=== PATIENT | male | born 1985 | race Caucasian/White ===

== ENCOUNTER 2017-01-20 11:20 | Emergency (ER) | payer SELFPAY ==
[~2017-01-20] VITALS: Ht 175.3 cm; Wt 55.0 kg
[2017-01-20 11:22] VITALS: BP 128/66; PULSE 64; RESP 20; TEMP 97.9; O2SAT 99
--- NOTE | 2017-01-20 12:25 | PD ---
HPI Chief Complaint: Facial Pain or Swelling Time Seen by Provider: 12:14 Travel History International Travel<30 days: No Contact w/Intl Traveler<30days: No Traveled to known affect area: No History of Present Illness HPI Patient's 31-year-old male presenting to emergency for evaluation of enlarged lymph node in his neck, patient states it's been ongoing for one year since he had dental work done. He had crowns and a root canal performed. Patient went to his dentist and was told that he had no dental disease that would account for the enlarged lymph nodes. He has been to the hospital in [place] for 5 times for the same complaint. Patient's friend stated that he was given antibiotics and blood work was done but he was never given an actual diagnosis. That he has cancer. Patient reports a tingly feeling in his face that comes and goes, currently he has no pain. Patient denies any fever, chills, weight loss, headache, shortness of breath. He does endorse tobacco use and Vaping. PFS Past Medical History Medical History: Denies Significant Hx Past Surgical History Other Surgery: Yes (CHEST TUBE SECONDARY TO PNEUMOTHORAX) Social History Alcohol Use: No Tobacco Use: Yes Substance Use: No Allergies-Medications (Allergen,Severity, Reaction): Coded Allergies: No Known Allergies (Unverified , 01/20/17) Review of Systems Except as stated in HPI: all other systems reviewed are Neg Musculoskeletal: Positive: Pain (IN JAW INTERMITTENT) Hematologic/Lymphatic: Positive: Lymph Node Enlargement Physical Exam Narrative GENERAL: Thin, well-developed, alert male. Appears anxious, in no acute distress. SKIN: Warm and dry. HEAD: Atraumatic. Normocephalic. EYES: Pupils equal and round. No scleral icterus. No injection or drainage. ENT: No nasal bleeding or discharge. Mucous membranes pink and moist. NECK: Trachea midline. No JVD. Submadibular lymph node enlargement. 2mm, moveable. CARDIOVASCULAR: Regular rate and rhythm. RESPIRATORY: No accessory muscle use. Clear to auscultation. Breath sounds equal bilaterally. GASTROINTESTINAL: Abdomen soft, non-tender, nondistended. Hepatic and splenic margins not palpable. MUSCULOSKELETAL: Extremities without clubbing, cyanosis, or edema. No obvious deformities. NEUROLOGICAL: Awake and alert. No obvious cranial nerve deficits. Motor grossly within normal limits. Five out of 5 muscle strength in the arms and legs. Normal speech. PSYCHIATRIC: Appropriate mood and affect; insight and judgment normal. Data Data Last Documented VS Vital Signs Date Time Temp Pulse Resp B/P Pulse Ox O2 Delivery O2 Flow Rate FiO2 01/20/17 11:22 97.9 64 20 128/66 99 Room Air Orders Complete Blood Count With Diff (01/20/17 12:05) MDM Medical Decision Making Medical Screen Exam Complete: Yes Emergency Medical Condition: Yes Interpretation(s) Vital Signs Date Time Temp Pulse Resp B/P Pulse Ox O2 Delivery O2 Flow Rate FiO2 01/20/17 11:22 97.9 64 20 128/66 99 Room Air Differential Diagnosis lymphadenitis vs. parotitis vs salivary gland stone vs malignancy vs. other Narrative Course Patient is a 31-year-old male that presented to the emergency department for Evaluation of enlarged submandibular lymph nodes, this is been ongoing for approximately one year since he had dental work done. Patient's vital signs are stable, he is afebrile. Patient has not had any weight loss, he's been reevaluated by his dentist to reassure him that he had no dental disease that would be causing the enlargement. He went to the hospital and the land [place] times and was worked up with no specific diagnosis per his report. He has been prescribed antibiotics in the past which she stated did not help. Discussed with patient that we would check routine labs however he needed to establish care with a primary doctor for this ongoing health concerns. He was given written information regarding the [facility]. Patient verbalized understanding of these instructions, he then decided to leave the hospital prior to treatment or testing. Patient Kash Gama has decided to leave the hospital against medical advice. This patient has the capacity to refuse care and understands the risks of leaving, including permanent disability and/or , and has had an opportunity to ask questions about his condition. The patient has been informed that he may return for care at any time, and follow up has been arranged/advised. Disposition: 07 AGAINST MEDICAL ADVICE Fernanda Henderson January 20, 2017 12:25
== END 2017-01-20 12:10 | disposition left against medical advice (07) ==
LOC: NEPD 11:20
DX: R59.0 Localized enlarged lymph nodes (principal)
CPT/HCPCS: 99283